=== PATIENT | male | born 1965 | race Caucasian/White ===

== ENCOUNTER 2017-03-11 18:12 | Emergency (ER) | payer SELFPAY ==
[~2017-03-11] VITALS: Ht 180.3 cm; Wt 68.4 kg
[~2017-03-11 18:12] MED LIST: ASPIR-TRIN325 M1 PO; CLINDAMYCIN HC300 MG PO; Folvite PO; HABITROL,NICODE21 MG TD; K-DUR10 ME2 PO; LASIX40 MG PO; LOPRESSOR25 MG PO; METOPROLOL TART75 MG PO; MOTRIN800 MG PO; NOHOMEMEDS; NORVASC5 MG PO; PERCOCET 5/31 TABLET PO; PROTONIX40 MG PO; THERAGRAN1 TABLET PO; THIAMINE,VITAM100 MG PO; VALIUM10 MG PO; ZESTRIL,PRINIVI10 M1 PO
[2017-03-11 18:30] VITALS: BP 138/80
== END 2017-03-11 18:30 | disposition left against medical advice (07) ==
LOC: EME 18:12
DX: R07.9 Chest pain, unspecified (principal); Z53.21 Procedure and treatment not carried out due to patient leaving prior to being seen by health care provider
CPT/HCPCS: 93005